=== PATIENT | male | born 1975 | race Caucasian/White ===

== ENCOUNTER 2016-12-01 09:28 | Emergency (ER) | payer MEDICARE ==
[~2016-12-01 09:28] MED LIST: ACETAMINOPHEN325 MG PO; COMBIVENT RESPIM4 GM IH; LEVAQUIN750 MG PO
== END 2016-12-01 10:34 | disposition home or self-care (01) ==
LOC: ER 09:28
DX: S51.852A Open bite of left forearm, initial encounter (principal); F17.210 Nicotine dependence, cigarettes, uncomplicated; W54.0XXA Bitten by dog, initial encounter
CPT/HCPCS: 90471